=== PATIENT | female | born 1945 | race Caucasian/White ===

== ENCOUNTER 2017-09-04 18:24 | Emergency (ER) | payer MEDICARE, BC ==
--- NOTE | 2017-09-04 20:28 | EDM.PDOC ---
ED HPI GENERAL MEDICAL PROBLEM - General Chief Complaint: General Stated Complaint: ABCESS TOOTH W/FEVER Time Seen by Provider: 09/04/17 19:05 Source of Information: Reports: Patient, RN Notes Reviewed History Limitations: Reports: No Limitations - History of Present Illness INITIAL COMMENTS - FREE TEXT/NARRATIVE: The patient states that she has had a right-sided toothache, more on the lower right teeth than the upper right teeth, radiating to her right jaw and right year, since 09/01/2017. She has been swishing with salt water, and applying clove oil. She has not tried any Orajel. She states that she has an appointment to see her dentist in [place] this coming 09/06/2017. She states that she developed a temperature up to 100.0 at home tonight. No oral drainage. The patient states that she has had similar symptoms involving other teeth, that she feels is related to her Sjogren's disease. The patient's PCP is Dr. Wesley. Right Tooth/Teeth Pain Score (Numeric/FACES): 5 - Related Data Allergies Allergy/AdvReac Type Severity Reaction Status Date / Time Sulfa (Sulfonamide Allergy Hives Verified 09/04/17 18:45 Antibiotics) Home Meds: Home Meds . 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) - Past Surgical History HEENT Surgical History: Reports: Cataract Surgery GI Surgical History: Reports: Appendectomy, Cholecystectomy Female Surgical History: Reports: Hysterectomy Neurological Surgical History: Reports: Lumbar Spine (Microdiscectomy) Social & Family History - Tobacco Use Smoking Status *Q: Former Smoker Years of Tobacco use: 19 Packs/Tins Daily: 0.5 Month Tobacco Last Used: Quit 1986 - Alcohol Use Alcohol Use History: Yes Alcohol Use Frequency: Socially - Recreational Drug Use Recreational Drug Use: No - Living Situation & Occupation Living situation: Reports: , with Spouse Occupation: Retired ED ROS GENERAL - Review of Systems Review Of Systems: See Below Constitutional: Reports: No Symptoms HEENT: Reports: No Symptoms Respiratory: Reports: No Symptoms Cardiovascular: Reports: No Symptoms Endocrine: Reports: No Symptoms GI/Abdominal: Reports: No Symptoms : Reports: No Symptoms Musculoskeletal: Reports: No Symptoms Skin: Reports: No Symptoms Neurological: Reports: No Symptoms Psychiatric: Reports: No Symptoms Hematologic/Lymphatic: Reports: No Symptoms Immunologic: Reports: No Symptoms ED EXAM, GENERAL - Physical Exam Exam: See Below Exam Limited By: No Limitations General Appearance: Alert, WD/WN, No Apparent Distress Eye Exam: Bilateral Eye: Normal Inspection Ears: Normal External Exam, Normal Canal, Hearing Grossly Normal, Normal TMs Nose: Normal Inspection, Normal Mucosa, No Blood Throat/Mouth: Normal Inspection, Normal Lips, Normal Oropharynx, Normal Voice, No Airway Compromise, Other (Teeth #1, 2 absent. Teeth #3, 4 with fillings ( tooth #3 is a tooth of concern). Teeth #7, 8, 9, 10, 11 with crowns. Tooth #15 with filling. Teeth #16, 17, absent. Tooth #18 with filling. Tooth #19 absent. Tooth #30 (another tooth of concern) with crown. Tooth #31 with fillings. Tooth #32 absent. No gingival swelling or pointing.) Head: Atraumatic, Normocephalic Neck: Normal Inspection, Supple, Non-Tender, Full Range of Motion. No: Lymphadenopathy (L), Lymphadenopathy (R) Course - Vital Signs Last Recorded V/S: Last Vital Signs Temp 36.6 C 09/04/17 18:45 Pulse 77 09/04/17 18:45 Resp BP 153/73 H 09/04/17 18:45 Pulse Ox 94 L 09/04/17 18:45 - Re-Assessments/Exams Free Text/Narrative Re-Assessment/Exam: 09/04/17 20:23 The patient is complaining of pain to teeth #3 and 30. I do not see any obvious signs of infection, such as gingival swelling or pointing, however, I will prescribe some penicillin. I'm recommending the patient take [id number] ibuprofen. I offered to get her some ibuprofen here, but she would prefer to take her own at home. She will continue to swish with salt water and use clove oil. I am also recommending she try Orajel. As above, she states that she has an appointment with her dentist this coming 09/06/2017. I advised her to notify her dentist that she is on penicillin. Departure - Departure Time of Disposition: 20:24 Disposition: Home, Self-Care 01 Condition: Good Clinical Impression: Dentalgia - Discharge Information Forms: ED Department Discharge Additional Instructions: You were seen in the emergency room for right-sided upper and lower toothaches. On examination, no infection was seen, however, in order to treat an unseen infection, you have been prescribed the antibiotic penicillin. Take one tablet every 6 hours, as prescribed. Take caxb-[id number] ibuprofen 2 tablets (400 mg) every 8 hours, with food, as needed for pain. You may continue to swish with salt water and use clove oil. Consider also using [id number] Orajel. Follow-up with your dentist at your previously scheduled appointment this coming 09/06/2017. Be sure to let your dentist know that you are on penicillin. If any other problems, please do not hesitate to return to the ER.
== END 2017-09-04 20:40 | disposition home or self-care (01) ==
LOC: JD.ED 18:24
DX: K08.89 Other specified disorders of teeth and supporting structures (principal); Z88.2 Allergy status to sulfonamides; Z87.891 Personal history of nicotine dependence
CPT/HCPCS: 99283

== ENCOUNTER 2018-10-29 18:02 | Emergency (ER) | payer MEDICARE, BC ==
[2018-10-29] MEDS ORDERED: Sodium Chloride 0.9% 10 ML Syringe FLUSH PRN (19:10)
[2018-10-29] MEDS ORDERED: Sodium Chloride 0.9% 1,000 ML IV SCH (19:15)
--- NOTE | 2018-10-29 19:16 | EDM.PDOC ---
ED HPI GENERAL MEDICAL PROBLEM - General Chief Complaint: Chest Pain Stated Complaint: [facility] Time Seen by Provider: 10/29/18 18:48 Source of Information: Reports: Patient History Limitations: Reports: No Limitations - History of Present Illness INITIAL COMMENTS - FREE TEXT/NARRATIVE: Patient is a 73-year-old female who presents to the ED complaining of lightheadedness, shortness of breath, chest/back pain, n/t to left upper extremity, off-and-on for the past 4 hours. Last episode was approximately 5:00 this afternoon. This came on abruptly with body position change and standing. Patient states she lowered himself to the floor so that she did not pass out. During these episodes patient stated her heart was pounding and she had a sensation of chest tightness, pressure that radiated to her upper middle back. She felt short of breath at this time. She was slightly nauseated and clammy. Symptoms only lasted for approximately 30 seconds. She denies any symptoms with exertion. She's had no prior history of similar symptoms noted. She has been under more stress recently with going through treatment for prostate cancer. In addition she has not been as active recently since having surgery on her right shoulder in August. EMS was contacted with last episode and transported to the emergency department. During transport patient was administered nitroglycerin, morphine, and O2 with resolution of symptoms. Patient has no symptoms as we speak. She denies the sensation of the room spinning. No documented fever, cough, hemoptysis, abdominal pain, dark tarry stools, bloody stools, dysuria, pain to posterior aspect of lower legs, increased swelling/weight gain, or vomiting. She denies any pain to her lower extremities or increased swelling. There is first-degree relatives with heart disease: Dad, sister, and brother. Patient carries history of PE while 45 years ago. She is not anticoagulated. Current symptoms are different from that experience. Denies any past medical history of diabetes, hypertension, CAD, hypercholesteremia. She has a history of lymphoma. She does not take any medications. Surgical history includes right shoulder, hysterectomy, gallbladder, and lymph node biopsy. - Related Data Allergies Allergy/AdvReac Type Severity Reaction Status Date / Time Sulfa (Sulfonamide Allergy Hives Verified 10/29/18 18:11 Antibiotics) Home Meds: Home Meds . 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: Musculoskeletal History: Reports: Arthritis Immunologic History: Reports: Other (See Below) Oncologic (Cancer) History: Reports: Other (See Below) Other Oncologic History: malt lymphoma - Past Surgical History HEENT Surgical History: Reports: Cataract Surgery GI Surgical History: Reports: Appendectomy, Cholecystectomy Female Surgical History: Reports: Hysterectomy Neurological Surgical History: Reports: Lumbar Spine Musculoskeletal Surgical History: Reports: Shoulder Surgery Social & Family History - Tobacco Use Smoking Status *Q: Never Smoker Second Hand Smoke Exposure: No - Caffeine Use Caffeine Use: Reports: Coffee - Recreational Drug Use Recreational Drug Use: No - Living Situation & Occupation Living situation: Reports: , with Spouse Occupation: Retired ED ROS GENERAL - Review of Systems Review Of Systems: ROS reveals no pertinent complaints other than HPI. ED EXAM, GENERAL - Physical Exam Exam: See Below Exam Limited By: No Limitations General Appearance: Alert, WD/WN, No Apparent Distress Eye Exam: Bilateral Eye: Normal Inspection Ears: Hearing Grossly Normal Nose: Normal Inspection Throat/Mouth: Normal Voice, No Airway Compromise Neck: Normal Inspection, Supple Respiratory/Chest: No Respiratory Distress, Lungs Clear, Normal Breath Sounds, No Accessory Muscle Use, Chest Non-Tender Cardiovascular: Normal Peripheral Pulses, Regular Rate, Rhythm, No Murmur Peripheral Pulses: 2+: Radial (L), Radial (R) GI/Abdominal: Normal Bowel Sounds, Soft, Non-Tender, No Organomegaly, No Distention Back Exam: Normal Inspection. No: CVA Tenderness (L), CVA Tenderness (R) Extremities: Normal Inspection, Normal Range of Motion, Non-Tender, No Pedal Edema Neurological: Alert, Oriented, CN II-XII Intact, Normal Cognition, No Motor/ Sensory Deficits Psychiatric: Normal Affect, Normal Mood Skin Exam: Warm, Dry, Intact, Normal Color, No Rash Course - Vital Signs Last Recorded V/S: Last Vital Signs Temp 98.0 F 10/29/18 18:12 Pulse 82 10/29/18 18:12 Resp 13 10/29/18 18:12 BP 125/84 10/29/18 18:12 Pulse Ox 95 10/29/18 18:12 Orthostatic Blood Pressure [ 111/84 Standing] Orthostatic Blood Pressure [ 92/75 Sitting] Orthostatic Blood Pressure [ 114/59 Supine] - Orders/Labs/Meds Orders: Active Orders 24 hr Category Date Time Status EKG 12 Lead [EKG Documentation Completion] [RC] STAT Care 10/29/18 18:15 Active Orthostatic Vital Signs [RC] ASDIRECTED Care 10/29/18 20:22 Active Peripheral IV Care [RC] . DIRECTED Care 10/29/18 19:10 Active Chest 1V Frontal [CR] Stat Exams 10/29/18 19:09 Taken Peripheral IV Insertion Adult [OM.PC] Routine Oth 10/29/18 19:10 Ordered Labs: Laboratory Tests 10/29/18 10/29/18 10/29/18 Range/Units 18:30 18:30 18:30 WBC 5.44 (3.98-10.04) K/mm3 RBC 4.66 (3.98-5.22) M/mm3 Hgb 13.0 (11.2-15.7) gm/L Hct 39.8 (34.1-44.9) % MCV 85.4 (79.4-94.8) fl MCH 27.9 (25.6-32.2) pg MCHC 32.7 (32.2-35.5) g/dl RDW Std Deviation 43.2 (36.4-46.3) fL Plt Count 264 (182-369) K/mm3 MPV 10.4 (9.4-12.3) fl Neutrophils % (Manual) 61 H (40-60) % Band Neutrophils % 0 (0-10) % Lymphocytes % (Manual) 31 (20-40) % Atypical Lymphs % 0 % Monocytes % (Manual) 6 (2-10) % Eosinophils % (Manual) 2 (0.7-5.8) % Basophils % (Manual) 0 L (0.1-1.2) Platelet Estimate Adequate Plt Morphology Comment Normal RBC Morph Comment Normal PT 11.2 (9.5-12.1) SECONDS INR 1.03 APTT 26 (24-31) SECONDS D-Dimer, Quantitative 0.68 H (0.19-0.50) mg/L Sodium 141 (136-145) mEq/L Potassium 3.6 (3.5-5.1) mEq/L Chloride 106 (98-107) mEq/L Carbon Dioxide 26 (21-32) mEq/L Anion Gap 12.6 (5-15) BUN 26 H (7-18) mg/dL Creatinine 1.0 (0.55-1.02) mg/dL Est Cr Clr Drug Dosing 50.18 mL/min Estimated GFR (MDRD) 55 (>60) mL/min BUN/Creatinine Ratio 26.0 H (14-18) Glucose 99 (83-115) mg/dL Calcium 9.6 (8.5-10.1) mg/dL Magnesium 1.8 (1.8-2.4) mg/dl Total Bilirubin 0.3 (0.2-1.0) mg/dL AST 23 (15-37) U/L ALT 24 (14-59) U/L Alkaline Phosphatase 83 (46-116) U/L Troponin I < 0.017 (0.00-0.056) ng/mL C-Reactive Protein 0.3 (<1.0) mg/dL Total Protein 7.3 (6.4-8.2) g/dl Albumin 3.5 (3.4-5.0) g/dl Globulin 3.8 gm/dL Albumin/Globulin Ratio 0.9 L (1-2) Urine Color (Yellow) Urine Appearance (Clear) Urine pH (5.0-8.0) Ur Specific [place] (1.005-1.030) Urine Protein (Negative) Urine Glucose (UA) (Negative) Urine Ketones (Negative) Urine Occult Blood (Negative) Urine Nitrite (Negative) Urine Bilirubin (Negative) Urine Urobilinogen (0.2-1.0) Ur Leukocyte Esterase (Negative) Urine RBC (0-5) /hpf Urine WBC (0-5) /hpf Ur Epithelial Cells (0-5) /hpf Urine Bacteria (FEW) /hpf Urine Mucus (FEW) /hpf 10/29/18 Range/Units 19:28 WBC (3.98-10.04) K/mm3 RBC (3.98-5.22) M/mm3 Hgb (11.2-15.7) gm/L Hct (34.1-44.9) % MCV (79.4-94.8) fl MCH (25.6-32.2) pg MCHC (32.2-35.5) g/dl RDW Std Deviation (36.4-46.3) fL Plt Count (182-369) K/mm3 MPV (9.4-12.3) fl Neutrophils % (Manual) (40-60) % Band Neutrophils % (0-10) % Lymphocytes % (Manual) (20-40) % Atypical Lymphs % % Monocytes % (Manual) (2-10) % Eosinophils % (Manual) (0.7-5.8) % Basophils % (Manual) (0.1-1.2) Platelet Estimate Plt Morphology Comment RBC Morph Comment PT (9.5-12.1) SECONDS INR APTT (24-31) SECONDS D-Dimer, Quantitative (0.19-0.50) mg/L Sodium (136-145) mEq/L Potassium (3.5-5.1) mEq/L Chloride (98-107) mEq/L Carbon Dioxide (21-32) mEq/L Anion Gap (5-15) BUN (7-18) mg/dL Creatinine (0.55-1.02) mg/dL Est Cr Clr Drug Dosing mL/min Estimated GFR (MDRD) (>60) mL/min BUN/Creatinine Ratio (14-18) Glucose (83-115) mg/dL Calcium (8.5-10.1) mg/dL Magnesium (1.8-2.4) mg/dl Total Bilirubin (0.2-1.0) mg/dL AST (15-37) U/L ALT (14-59) U/L Alkaline Phosphatase (46-116) U/L Troponin I (0.00-0.056) ng/mL C-Reactive Protein (<1.0) mg/dL Total Protein (6.4-8.2) g/dl Albumin (3.4-5.0) g/dl Globulin gm/dL Albumin/Globulin Ratio (1-2) Urine Color Light yellow (Yellow) Urine Appearance Clear (Clear) Urine pH 6.0 (5.0-8.0) Ur Specific [place] 1.010 (1.005-1.030) Urine Protein Negative (Negative) Urine Glucose (UA) Negative (Negative) Urine Ketones Negative (Negative) Urine Occult Blood Negative (Negative) Urine Nitrite Negative (Negative) Urine Bilirubin Negative (Negative) Urine Urobilinogen 0.2 (0.2-1.0) Ur Leukocyte Esterase Negative (Negative) Urine RBC 0-5 (0-5) /hpf Urine WBC 0-5 (0-5) /hpf Ur Epithelial Cells 0-5 (0-5) /hpf Urine Bacteria Few (FEW) /hpf Urine Mucus Not seen (FEW) /hpf Meds: Medications Discontinued Medications Generic Name Dose Route Start Last Admin Trade Name Freq PRN Reason Stop Dose Admin Hydromorphone HCl 0.25 mg 10/29/18 20:14 10/29/18 21:23 Dilaudid IVPUSH 10/29/18 20:15 Not Given ONETIME ONE Sodium Chloride 1,000 mls @ 125 mls/hr 10/29/18 19:15 10/29/18 19:27 Normal Saline IV 125 mls/hr ASDIRECTED REJI Administration Sodium Chloride 10 ml 10/29/18 19:10 10/29/18 19:27 Saline Flush FLUSH 10 ml ASDIRECTED PRN Administration Keep Vein Open - Re-Assessments/Exams Free Text/Narrative Re-Assessment/Exam: IV will be established with NS. Patient has no complaints. She has received 324mg of ASA. Labs and studies include: CBC, C14, CRP, DD, Mg, Coags, UA, Troponin x2, and CXR 1 view. EKG sinus rhythm first-degree AV block with left anterior fascicular block at a rate of 69. NH interval is 232. QTC 423. Slight ST elevation in lead v2 with no reciprocal changes. Chest x-ray reviewed with no cardiomegaly, increased vascularization, widened mediastinum, or pleural effusions bilaterally. Final interpretation is pending. 2013 Patient complaining of left mid thoracic back pain worsened with palpation. Mild in nature. She became sob and nauseated with ambulation to the bathroom with no diaphoresis. I have ordered dilaudid 0.25mg IVP. Labs reviewed: CBC essentially normal. D-dimer elevated at 0.68 within normal range for patient's age. Sodium 141, potassium 3.6, CO2 26, AG 12.6, creatinine 1.0, glucose normal, magnesium normal, LFTs normal, troponin normal, CRP normal , and UA is negative. Discussed labs, cxr, and ekg with the patient. She is requesting to be transported to [facility] to have a stress test and cardiology evaluation. 10/29/18 20:22 Orthostatic vitals will be obtained. 10/29/182012 I have spoken with Dr. 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 She has accepted the patient. Does not require any additional medications administered here. Ambulance has been paged and paperwork completed. 2013 Per nursing staff patients BP dropped to 80 systolic with standing but came back up quickly to within normal range. Patient did complain of episodic dizziness during this time. Fluid bolus of 500mls ordered. Departure - Departure Time of Disposition: 21:08 Disposition: DC/Tfer to [facility] 02 Reason for Transfer *Q: Other Condition: Good Clinical Impression: Chest pain, rule out acute myocardial infarction, Postural hypotension, Heart palpitations, Orthostatic lightheadedness Back pain Qualifiers: Back pain location: thoracic back pain Chronicity: acute Back pain laterality: left Qualified Code(s): M54.6 - Pain in thoracic spine Referrals: Wendy Caicedo MD [Primary Care Provider] - Forms: ED Department Discharge - My Orders Last 24 Hours: My Active Orders 10/29/18 18:15 EKG 12 Lead [EKG Documentation Completion] [RC] STAT 10/29/18 19:09 Chest 1V Frontal [CR] Stat 10/29/18 19:10 Peripheral IV Care [RC] . DIRECTED Peripheral IV Insertion Adult [OM.PC] Routine 10/29/18 20:22 Orthostatic Vital Signs [RC] ASDIRECTED - Assessment/Plan Last 24 Hours: My Active Orders 10/29/18 18:15 EKG 12 Lead [EKG Documentation Completion] [RC] STAT 10/29/18 19:09 Chest 1V Frontal [CR] Stat 10/29/18 19:10 Peripheral IV Care [RC] . DIRECTED Peripheral IV Insertion Adult [OM.PC] Routine 10/29/18 20:22 Orthostatic Vital Signs [RC] ASDIRECTED
[2018-10-29] MEDS: HYDROmorphone 1 MG/ML Syringe IVPUSH ONE ×2 (20:36→21:23)
--- NOTE | 2018-10-30 18:27 | CR ---
Chest: Portable view of the chest was obtained. Comparison: No previous study. Heart size and mediastinum are within normal limits for portable technique. Lungs are hyperinflated compatible with emphysematous change. Nodularity is noted within the right upper chest. Uncertain if this represents scarring with granulomas or other etiology. Lungs otherwise are clear. Previous right shoulder surgery is seen. Impression: 1. Findings within the right upper lung most likely benign although noncontrast chest CT recommended to confirm. This can be performed non-emergently. 2. Emphysematous change and other incidental findings. Nothing acute is seen. Diagnostic code #3
== END 2018-10-29 21:25 ==
LOC: JD.ED 18:02
DX: I95.1 Orthostatic hypotension (principal); M54.6 Pain in thoracic spine; I25.2 Old myocardial infarction; Z88.2 Allergy status to sulfonamides
CPT/HCPCS: 36415; 71045; 80053; 81001; 83735; 84484; 85007; 85027; 85379; 85610; 85730; 86140; 93005; 96360; 96361; 99285; J7040; J1170

== ENCOUNTER 2019-06-27 16:56 | Emergency (ER) | payer MEDICARE, BC ==
[2019-06-27] MEDS ORDERED: Sodium Chloride 0.9% 10 ML Syringe FLUSH PRN (17:31)
[2019-06-27] MEDS ORDERED: Diltiazem 120 MG Cap.CD PO ONE (18:36)
--- NOTE | 2019-06-27 18:44 | EDM.PDOC ---
ED HPI GENERAL MEDICAL PROBLEM - General Chief Complaint: Cardiovascular Problem Stated Complaint: FAST HEART RATE/ON HOLTER MONITOR RIGHT NOW Time Seen by Provider: 06/27/19 17:19 Source of Information: Reports: Patient, Family, Provider History Limitations: Reports: No Limitations - History of Present Illness INITIAL COMMENTS - FREE TEXT/NARRATIVE: The patient presents with palpitations She was at home in [place] when her doctor called her and told her to come to the ER. She is wearing an event monitor and they caught atrial fibrillation with RVR at 160. She said this all started at 9am this morning. She did not feel well. She had palpitations. She was short of breath and had generalized weakness and no energy. She said back in October is when this all started. She had passed out and was seen here and was sent to [facility] in [place] and was told she had vasovagal syncope. She says since then she had 12 episodes like this. She saw Dr Hamilton and she had the patient wear an event monitor. Today they caught the A- fib. She is on aspirin. Onset: Sudden Duration: Hour(s): (9am) Severity: Moderate Improves with: Reports: None Worsens with: Reports: None Associated Symptoms: Reports: Shortness of Breath. Denies: Chest Pain, Cough, Fever/Chills, Headaches, Nausea/Vomiting - Related Data Allergies Allergy/AdvReac Type Severity Reaction Status Date / Time Sulfa (Sulfonamide Allergy Hives Verified 06/27/19 17:11 Antibiotics) Home Meds: Home Meds Apixaban [Eliquis] 5 mg PO BID #60 tablet 06/27/19 [Rx] Aspirin 81 mg PO DAILY 06/27/19 [History] Metoprolol Succinate [Toprol XL] 12.5 mg PO BEDTIME #15 tab.er 06/27/19 [Rx] Multivitamin [Multi-Day Vitamins] 1 each PO DAILY 06/27/19 [History] Past Medical History HEENT History: Reports: Impaired Vision Other HEENT History: wears glasses Cardiovascular History: Reports: Other (See Below) Other Cardiovascular History: Palpitations Respiratory History: Reports: COPD Gastrointestinal History: Reports: Colon Polyp, PUD Genitourinary History: Reports: Urinary Incontinence RN NEUROSURGICAL History: Reports: Musculoskeletal History: Reports: Arthritis Psychiatric History: Reports: None Endocrine/Metabolic History: Reports: Other (See Below) Other Endocrine/Metabolic History: Sjogren's Syndrome Hematologic History: Reports: None Immunologic History: Reports: Other (See Below) Oncologic (Cancer) History: Reports: Other (See Below) Other Oncologic History: malt lymphoma Dermatologic History: Reports: None - Infectious Disease History Infectious Disease History: Reports: None - Past Surgical History Head Surgeries/Procedures: Reports: None HEENT Surgical History: Reports: Cataract Surgery GI Surgical History: Reports: Appendectomy, Cholecystectomy Female Surgical History: Reports: Hysterectomy Neurological Surgical History: Reports: Lumbar Spine Musculoskeletal Surgical History: Reports: Shoulder Surgery Social & Family History - Tobacco Use Smoking Status *Q: Never Smoker - Caffeine Use Caffeine Use: Reports: Coffee - Recreational Drug Use Recreational Drug Use: No - Living Situation & Occupation Living situation: Reports: , with Spouse Occupation: Retired ED ROS GENERAL - Review of Systems Review Of Systems: See Below Constitutional: Reports: No Symptoms HEENT: Reports: No Symptoms Respiratory: Reports: Shortness of Breath Cardiovascular: Reports: No Symptoms Endocrine: Reports: No Symptoms GI/Abdominal: Reports: No Symptoms : Reports: No Symptoms Musculoskeletal: Reports: No Symptoms Skin: Reports: No Symptoms Neurological: Reports: Headache ED EXAM, GENERAL - Physical Exam Exam: See Below Exam Limited By: No Limitations General Appearance: Alert, No Apparent Distress Ears: Normal External Exam Nose: Normal Inspection Head: Atraumatic, Normocephalic Neck: Normal Inspection Respiratory/Chest: No Respiratory Distress, Lungs Clear, Normal Breath Sounds Cardiovascular: Regular Rate, Rhythm, No Edema, No Murmur GI/Abdominal: Soft, Non-Tender, No Organomegaly, No Mass Back Exam: Normal Inspection EKG INTERPRETATION EKG Date: 06/27/19 Time: 17:18 Rhythm: NSR Rate (Beats/Min): 77 [place]: Normal P-Wave: Present QRS: Normal ST-T: Normal QT: Normal KS/PQ Interval: 1st degree HB Course - Vital Signs Last Recorded V/S: Last Vital Signs Temp 97 F 06/27/19 17:08 Pulse 86 06/27/19 17:08 Resp 16 06/27/19 17:08 BP 137/85 06/27/19 17:08 Pulse Ox 97 06/27/19 17:08 - Orders/Labs/Meds Orders: Active Orders 24 hr Category Date Time Status Cardiac Monitoring [RC] . DIRECTED Care 06/27/19 17:31 Active EKG Documentation Completion [RC] STAT Care 06/27/19 17:33 Active Peripheral IV Care [RC] . DIRECTED Care 06/27/19 17:33 Active Chest 1V Frontal [CR] Stat Exams 06/27/19 17:33 Taken T4 FREE [CHEM] Stat Lab 06/27/19 17:45 Received Sodium Chloride 0.9% [Saline Flush] Med 06/27/19 17:31 Active 10 ml FLUSH ASDIRECTED PRN Peripheral IV Insertion Adult [OM.PC] Stat Oth 06/27/19 17:31 Ordered Medication Orders Sodium Chloride (Saline Flush) 10 ml FLUSH ASDIRECTED PRN PRN Reason: Keep Vein Open Last Admin: 06/27/19 17:45 Dose: 10 ml Labs: Laboratory Tests 06/27/19 06/27/19 Range/Units 17:45 17:45 WBC 5.60 (3.98-10.04) K/mm3 RBC 4.83 (3.98-5.22) M/mm3 Hgb 14.4 (11.2-15.7) gm/dl Hct 42.1 (34.1-44.9) % MCV 87.2 (79.4-94.8) fl MCH 29.8 (25.6-32.2) pg MCHC 34.2 (32.2-35.5) g/dl RDW Std Deviation 45.6 (36.4-46.3) fL Plt Count 293 (182-369) K/mm3 MPV 9.9 (9.4-12.3) fl Neut % (Auto) 65.3 (34.0-71.1) % Lymph % (Auto) 23.0 (19.3-51.7) % [place] % (Auto) 9.5 (4.7-12.5) % Eos % (Auto) 1.8 (0.7-5.8) Baso % (Auto) 0.4 (0.1-1.2) % Neut # (Auto) 3.66 (1.56-6.13) K/mm3 Lymph # (Auto) 1.29 (1.18-3.74) K/mm3 [place] # (Auto) 0.53 H (0.24-0.36) K/mm3 Eos # (Auto) 0.10 (0.04-0.36) K/mm3 Baso # (Auto) 0.02 (0.01-0.08) K/mm3 Sodium 138 (136-145) mEq/L Potassium 3.8 (3.5-5.1) mEq/L Chloride 104 (98-107) mEq/L Carbon Dioxide 25 (21-32) mEq/L Anion Gap 12.8 (5-15) BUN 33 H (7-18) mg/dL Creatinine 1.3 H (0.55-1.02) mg/dL Est Cr Clr Drug Dosing 36.62 mL/min Estimated GFR (MDRD) 40 (>60) mL/min BUN/Creatinine Ratio 25.4 H (14-18) Glucose 90 (83-115) mg/dL Calcium 9.9 (8.5-10.1) mg/dL Total Bilirubin 0.5 (0.2-1.0) mg/dL AST 19 (15-37) U/L ALT 21 (14-59) U/L Alkaline Phosphatase 85 (46-116) U/L Troponin I < 0.017 (0.00-0.056) ng/mL Total Protein 7.5 (6.4-8.2) g/dl Albumin 3.5 (3.4-5.0) g/dl Globulin 4.0 gm/dL Albumin/Globulin Ratio 0.9 L (1-2) TSH 3rd Generation 5.778 H (0.358-3.74) uIU/mL Meds: Medications Generic Name Dose Route Start Last Admin Trade Name Freq PRN Reason Stop Dose Admin Sodium Chloride 10 ml 06/27/19 17:31 06/27/19 17:45 Saline Flush FLUSH 10 ml ASDIRECTED PRN Administration Keep Vein Open Discontinued Medications Generic Name Dose Route Start Last Admin Trade Name Freq PRN Reason Stop Dose Admin Apixaban 5 mg 06/27/19 19:03 Eliquis PO 06/27/19 19:04 ONETIME ONE Diltiazem HCl 120 mg 06/27/19 18:36 Cardizem Cd PO 06/27/19 18:37 ONETIME ONE Metoprolol Succinate 12.5 mg 06/27/19 19:01 Toprol Xl PO 06/27/19 19:02 ONETIME ONE Metoprolol Tartrate 12.5 mg 06/27/19 18:58 Lopressor PO 06/27/19 18:59 ONETIME ONE - Re-Assessments/Exams Free Text/Narrative Re-Assessment/Exam: 06/27/19 19:19 I ordered an IV saline lock, EKG, CXR and labs. Her EKG shows a NSR with no acute changes. Her CXR looks good. Her CBC and CMP look good. Her troponin is negative. Her TSH is slightly elevated. I called [facility] in [place] and talked with Dr Sapp the seo professional call or contact centre team leader and he wanted her on some eliquis and toprol XL low dose. Departure - Departure Time of Disposition: 19:25 Disposition: Home, Self-Care 01 Condition: Good Clinical Impression: Atrial fibrillation with RVR Prescriptions: Apixaban [Eliquis] 5 mg PO BID #60 tablet Metoprolol Succinate [Toprol XL] 12.5 mg PO BEDTIME #15 tab.er Referrals: Wendy Caicedo MD [Primary Care Provider] - 1 Week Forms: ED Department Discharge Additional Instructions: Stop taking the aspirin. Take the eliquis 2 times per day. Take the toprol XL 1/2 pill at night. Someone from the cardiology team at [facility] will call you with a day and time to be seen. If you do not hear from someone by tomorrow afternoon call . Please return if you are worse. - My Orders Last 24 Hours: My Active Orders 06/27/19 17:31 Cardiac Monitoring [RC] . DIRECTED Sodium Chloride 0.9% [Saline Flush] 10 ml FLUSH ASDIRECTED PRN Peripheral IV Insertion Adult [OM.PC] Stat 06/27/19 17:33 EKG Documentation Completion [RC] STAT Peripheral IV Care [RC] . DIRECTED Chest 1V Frontal [CR] Stat 06/27/19 17:45 T4 FREE [CHEM] Stat - Assessment/Plan Last 24 Hours: My Active Orders 06/27/19 17:31 Cardiac Monitoring [RC] . DIRECTED Sodium Chloride 0.9% [Saline Flush] 10 ml FLUSH ASDIRECTED PRN Peripheral IV Insertion Adult [OM.PC] Stat 06/27/19 17:33 EKG Documentation Completion [RC] STAT Peripheral IV Care [RC] . DIRECTED Chest 1V Frontal [CR] Stat 06/27/19 17:45 T4 FREE [CHEM] Stat
[2019-06-27] MEDS ORDERED: Metoprolol Tartrate 25 MG Tab PO ONE (18:58)
[2019-06-27] MEDS ORDERED: Metoprolol Succinate 25 MG Tab.ER PO ONE (19:01)
[2019-06-27] MEDS ORDERED: Apixaban 5 MG Tab PO ONE (19:03)
--- NOTE | 2019-06-28 06:54 | CR ---
Chest: Portable view of the chest was obtained. Comparison: Previous chest x-ray of 10/29/18. Heart size and mediastinum are within normal limits for portable technique. Lungs are clear with no acute parenchymal change. Bony structures are grossly intact. Previous right shoulder surgery is noted. Impression: 1. Nothing acute is appreciated on portable chest x-ray. Diagnostic code #2
== END 2019-06-27 20:00 | disposition home or self-care (01) ==
LOC: JD.ED 16:56
DX: I48.0 Paroxysmal atrial fibrillation (principal); J44.9 Chronic obstructive pulmonary disease, unspecified; Z79.82 Long term (current) use of aspirin; Z79.01 Long term (current) use of anticoagulants; Z88.2 Allergy status to sulfonamides
CPT/HCPCS: 36415; 71045; 80053; 84439; 84443; 84484; 85025; 93005; 99285; A9270

== ENCOUNTER 2021-02-27 17:43 | Emergency (ER) | payer MEDICARE, BC ==
--- NOTE | 2021-02-27 20:36 | EDM.PDOC ---
ED HPI GENERAL MEDICAL PROBLEM - General Chief Complaint: General Stated Complaint: SENT BY BOWLING - INFECTION Time Seen by Provider: 02/27/21 19:42 Source of Information: Reports: Patient, Family (Daughter) History Limitations: Reports: No Limitations - History of Present Illness INITIAL COMMENTS - FREE TEXT/NARRATIVE: Mrs. Alanis is a pleasant 76 year old woman who states that she developed proximal muscle weakness and pain, decreased appetite, and weight loss around August or September. She saw a Putty Worker in December, and was diagnosed with inflammatory myopathy. She has been on prednisone and azathioprine ever since. She states that about 2 weeks ago she developed posterior neck pain radiating up to her head, causing a headache, and general fatigue. She contacted her Putty Worker's nurse on Wednesday, and had blood work performed yesterday. She was notified today that her CRP was elevated at 37.3, up from about 5 about a month ago. She was instructed to see her PCP for evaluation, but patient states that her PCPs office was closed today, therefore she went to the walk-in clinic. The walk-in clinic sent her here for evaluation and treatment of an infection. The patient states that she has not had a recent fever, chills, cough, abdominal pain, dyspnea, vomiting, diarrhea, or urinary symptoms. No recent rashes. Here in the ED, the patient is found to be hemodynamically stable, afebrile, saturating 90% on room air. She appears to be comfortable, in no acute distress whatsoever. The patient reports that in addition to 2 weeks of fatigue, neck pain, and headache, she has also had some nausea, otherwise, the patient denies having a recent fever, chills, sore throat, ear pain, nasal or sinus congestion, cough, dyspnea, chest pain, palpitations, vomiting, constipation, diarrhea, abdominal pain, urinary symptoms, recent bloody bowel movements or black bowel movements, recent joint aches, or rashes. The patient's PCP is Dr. Wendy Hamilton. Her Putty Worker is Dr. Thierno Solomon. Neck Pain Score (Numeric/FACES): 6 - Related Data Allergies Allergy/AdvReac Type Severity Reaction Status Date / Time Sulfa (Sulfonamide Allergy Hives Verified 02/27/21 18:27 Antibiotics) Home Meds: Home Meds Apixaban [Eliquis] 5 mg PO BID #60 tablet 06/27/19 [Rx] Multivitamin [Multi-Day Vitamins] 1 each PO DAILY 06/27/19 [History] Metoprolol Succinate [Toprol XL] 25 mg PO BEDTIME 02/27/21 [History] azaTHIOprine [Azathioprine] 50 mg PO BID 02/27/21 [History] predniSONE 5 mg PO DAILY 02/27/21 [History] Past Medical History HEENT History: Reports: Impaired Vision (wears glasses) Cardiovascular History: Reports: Afib (paroxysmal) Respiratory History: Reports: COPD (suspected, not confirmed) Gastrointestinal History: Reports: Colon Polyp, PUD Genitourinary History: Reports: Urinary Incontinence (stress incontinence) Musculoskeletal History: Reports: Arthritis, Other (See Below) (Inflammatory myopathy) Immunologic History: Reports: Other (See Below) (Sjogren's syndrome) Oncologic (Cancer) History: Reports: Other (See Below) (MALT lymphoma) - Past Surgical History HEENT Surgical History: Reports: Cataract Surgery (bilateral) GI Surgical History: Reports: Appendectomy, Cholecystectomy Female Surgical History: Reports: Hysterectomy Neurological Surgical History: Reports: Lumbar Spine Musculoskeletal Surgical History: Reports: Shoulder Surgery Social & Family History - Tobacco Use Tobacco Use Status *Q: Never Tobacco User - Caffeine Use Caffeine Use: Reports: None - Recreational Drug Use Recreational Drug Use: No - Living Situation & Occupation Living situation: Reports: , with Spouse Occupation: Retired ED ROS GENERAL - Review of Systems Review Of Systems: Comprehensive ROS is negative, except as noted in HPI. ED EXAM, GENERAL - Physical Exam Exam: See Below Exam Limited By: No Limitations General Appearance: Alert, WD/WN, No Apparent Distress Eye Exam: Bilateral Eye: EOMI, Normal Inspection Ears: Normal External Exam, Hearing Grossly Normal Nose: Normal Inspection Throat/Mouth: Normal Inspection, Normal Lips, Normal Voice, No Airway Compromise Head: Atraumatic, Normocephalic Neck: Normal Inspection, Full Range of Motion Respiratory/Chest: No Respiratory Distress, Lungs Clear, Normal Breath Sounds, No Accessory Muscle Use. No: Decreased Breath Sounds, Crackles, Rhonchi, Wheez ing, Stridor, Prolonged Expiration Cardiovascular: Normal Peripheral Pulses, Regular Rate, Rhythm, No Edema, No Gallop, No JVD, No Murmur, No Rub Peripheral Pulses: 3+: Radial (L), Radial (R) GI/Abdominal: Normal Bowel Sounds, Soft, Non-Tender, No Organomegaly, No Distention, No Abnormal Bruit, No Mass Back Exam: Normal Inspection, Full Range of Motion Extremities: Normal Inspection, Normal Range of Motion, No Pedal Edema, Normal Capillary Refill Neurological: Alert, Oriented, Normal Cognition, No Motor/Sensory Deficits Psychiatric: Normal Affect Skin Exam: Warm, Dry, Intact, Normal Color, No Rash Course - Vital Signs Last Recorded V/S: Last Vital Signs Temp 36.4 C 02/27/21 18:23 Pulse 76 02/27/21 18:23 Resp 16 02/27/21 18:23 BP 110/69 02/27/21 18: Pulse Ox 90 L 02/27/21 18:23 - Re-Assessments/Exams Free Text/Narrative Re-Assessment/Exam: 02/27/21 20:31 As above, the patient developed symptoms of decreased appetite, weight loss, and proximal muscle weakness around August or September. She saw a Putty Worker in December, and tests revealed a CPK elevated to around 8000, consistent with inflammatory myopathy. She has being treated with prednisone and azathioprine since December. She developed neck pain radiating up to her head, and generalized fatigue about 2 weeks ago. She relayed this information to her Putty Worker's office on Wednesday, and had blood work, including a CBC, CMP, CRP, and CPK done yesterday. Her CPK is down to around 2900, but her CRP was found to be modestly elevated at 37.3. She was instructed to go to her PCP, but because her PCPs office was closed, she went to the walk-in clinic, who then instructed her to come here, believing that she has an infection. The patient does not, however, have a fever, cough, dyspnea, abdominal pain, vomiting, diarrhea, or urinary symptoms. Her physical exam is entirely unremarkable, however, her oxygen saturation is noted to be 90% on room air. Based on the above, I have ordered a swab for the SARS-CoV-2 virus and a chest x-ray. In addition, we will endeavor to get in touch with her Putty Worker. 02/27/21 20:38 The patient refused to be swabbed for the SARS-CoV-2 virus, stating "I don't have COVID". She is convinced of that because she has tested negative in the past, and because she does not have any new symptoms. I explained that the reason I ordered the test is because she is hypoxemic and has an elevated CRP. The patient acknowledged that her oxygen saturation is ordinarily 95% when she goes to the doctor, and she does not regularly check her oxygen level, therefore she cannot say how long she has been hypoxemic. I explained that COVID-19 can cause otherwise asymptomatic hypoxemia, which, in fact, is one of the most common presentations in the ED, but the patient did not change her mind. 02/27/21 20:47 Two-view chest radiograph reviewed. The cardiac silhouette is within normal limits. No pulmonary vascular congestion. No pleural effusions. No focal infiltrate. No pneumothorax. There is hyperinflation and bilateral diaphragmatic flattening, consistent with COPD. A right shoulder arthroscopic anchor is noted. Gisela in the right upper quadrant, consistent with prior cholecystectomy, noted. Formal read per the Radiologist pending. Case discussed with Dr. Solomon, the patient's Putty Worker, at 20:42. He stated he has been trying to convince the patient to receive the COVID vaccine, however, she has continued to refuse it. He thinks that it would be good to check the patient for COVID-19, if I can convince her to undergo the test. He did not have any other recommended tests at this time. He recommended that the patient follow-up with her PCP, then have repeat labs in about 2 weeks. 02/27/21 20:54 Chest x-ray results and my conversation with Dr. Solomon discussed with the patient and her daughter. I will discharge the patient home, and have her follow-up with her PCP, Dr. Hamilton. The patient stated that she has an appointment on 03/07/2021. Either Dr. Enciso or the patient, through Dr. Solomon's RN, can arrange for repeat blood work in about 2 weeks. Departure - Departure Time of Disposition: 20:56 Disposition: Home, Self-Care 01 Condition: Good Clinical Impression: Elevated C-reactive protein (CRP), Hypoxemia - Discharge Information *PRESCRIPTION DRUG MONITORING PROGRAM REVIEWED*: Not Applicable *COPY OF PRESCRIPTION DRUG MONITORING REPORT IN PATIENT CARL: Not Applicable Instructions: C-Reactive Protein Test , Hypoxemia Referrals: Wendy Caicedo MD [Physician] - Thierno Solomon MD [Ordering Only Provider] - Forms: ED Department Discharge Additional Instructions: You were seen in the emergency room after blood work, drawn yesterday, revealed an elevated CRP level. Your oxygen level was found to be depressed at 90% in the ER. Work-up in the ER included a chest x-ray, which found hyperinflation, consistent with (although not diagnostic of) COPD. Your chest x-ray was otherwise clean, with no suggestion of infection. A swab for the SARS-CoV-2 virus was recommended, but declined. Your case was discussed with your Putty Worker, Dr. Thierno Solomon, who also encouraged you to get tested for the SARS-CoV-2 virus. He recommended that you follow-up with your PCP, Dr. Wendy Hamilton, at your previously scheduled appointment on 03/07/2021. He recommended that you have repeat blood work performed in about 2 weeks. The blood work can be arranged through Dr. Hamilton or through Dr. Solomon's nurse. If any other problems, please do not hesitate to return to the ER. Sepsis Event Note (ED) - Evaluation Sepsis Screening Result: No Definite Risk - Focused Exam Vital Signs: Vital Signs Temp Pulse Resp BP Pulse Ox 02/27/21 18:23 36.4 C 76 16 110/69 90 L
--- NOTE | 2021-02-27 20:55 | CR ---
Chest: PA and lateral views of the chest were obtained. Comparison: Prior chest x-ray 06/27/19 and 10/29/18. Heart size and mediastinum are within normal limits. Minimal linear scarring is seen within the lingula. Lungs otherwise are clear. Prior shoulder surgery is noted on the right side. Surgical clips are seen within the upper abdomen. Impression: 1. Findings as noted above. 2. Nothing acute is seen on 2 view chest x-ray. Diagnostic code #2
== END 2021-02-27 21:07 | disposition home or self-care (01) ==
LOC: JD.ED 17:43
DX: R09.02 Hypoxemia (principal); R79.89 Other specified abnormal findings of blood chemistry; I48.91 Unspecified atrial fibrillation; J44.9 Chronic obstructive pulmonary disease, unspecified; Z88.2 Allergy status to sulfonamides; Z79.01 Long term (current) use of anticoagulants; Z79.899 Other long term (current) drug therapy
CPT/HCPCS: 71046; 71046-26; 99283; 99284-25

== ENCOUNTER 2022-05-28 11:07 | Emergency (ER) | payer MEDICARE, BC | END 2022-05-28 14:04 | disposition home or self-care (01) | LOC: JD.ED 11:07 | DX: S09.90XA Unspecified injury of head, initial encounter (principal); R00.1 Bradycardia, unspecified; J44.9 Chronic obstructive pulmonary disease, unspecified; I48.91 Unspecified atrial fibrillation; Z88.2 Allergy status to sulfonamides; Z79.899 Other long term (current) drug therapy; W22.8XXA Striking against or struck by other objects, initial encounter | CPT/HCPCS: 70450; 70450-26; 93005; 99284 ==